=== PATIENT | male | born 1980 | race Caucasian/White ===

== ENCOUNTER 2018-03-10 17:22 | Inpatient (IN) | payer SELFPAY ==
[2018-03-10] VITALS (9 sets, daily range): BP systolic 101–161; BP diastolic 72–90; PULSE 106–125; RESP 15–24; TEMP 36.4–37.2; O2SAT 98–100; BMI 31.1; BMI 30.2
[2018-03-10] MEDS: 0.9% Normal Saline 1,000 ML 1000 ML IV (17:46)
[2018-03-10] MEDS: proMETHazine 25 MG/ML Syringe 12.5 MG IV (17:46)
[2018-03-10 17:53] LABS: Absolute Lymphocyte Count 0.54 X10^3/ul (0.83-4.51); Absolute Neutrophil Count 9.7 X10^3/uL (2.0-7.7); Basophil# 0.01 X10^3/uL; Basophil% 0.1 % (0-1); Eosinophil# 0.01 X10^3/uL; Eosinophils% 0.1 % (0-5); Hematocrit 47.2 % (40-54); Hemoglobin 15.4 g/dl (13.0-16.5); Lymphocyte # 0.54 X10^3/ul (4.0); Lymphocyte % 5.1 % (19-41); Mean Corp Hgb Conc 32.6 g/gl (32-36); Mean Corpuscular Volume 95.2 fL (80-94); Mean Platelet Vol. 10.9 fl (6.2-12.0); Monocyte# 0.33 X10^3/uL; Monocyte% 3.1 % (0-10); Neutrophil # 9.65 X10^3/uL (2.7-7.7); Neutrophil % 91.5 % (47-70); Platelet Count 250 K/mm3 (150-450); RBC Distribution Width CV 12.5 % (11.6-14.6); RBC Distribution Width SD 42.7 fl (35.1-43.9); Red Blood Count 4.96 M/mm3 (4.6-6.2); White Blood Count 10.6 K/mm3 (4.4-11.0)
[2018-03-10 17:54] LABS: Differential Indicated SCAN CRITERIA MET; POSITIVE COUNT NO; POSITIVE DIFFERENTIAL YES; POSITIVE MORPHOLOGY NO
[2018-03-10 18:05] LABS: Bacteria 0 SEEN /hpf (None Seen); Mucous, Urine 0 SEEN /hpf (<or=2+); Red Blood Cells-Urine 0 SEEN /hpf (0-5); Squamous Epithelial Cells - UA 0 SEEN /hpf (0-5); White Blood Cells 0 SEEN /hpf (0-5)
[2018-03-10 18:13] LABS: Differential Comment SCANNED
[2018-03-10 18:14] LABS: Anion Gap 26 (5-15); BUN 31 mg/dL (7-18); Calcium,Total 8.9 mg/dL (8.5-10.1); Chloride 94 mmol/L (98-107); Creatinine, Serum 1.94 mg/dL (0.70-1.30); EST Glomerular Filtration Rate 41 mL/min (>60); Est Glom Filt Rate - Afr Amer 50 mL/min (>60); Estimated Creatinine Clearance 49.46 ml/min; Glucose 488 mg/dL (74-106); Sodium Level 126 mmol/L (136-145)
[2018-03-10 18:15] LABS: Color, Urine Yellow (Yellow); Glucose, Dipstick 1000 mg/dl (Normal); Leukocyte Esterase-Dipstick Negative /ul (Negative); Nitrite-Dipstick Negative (Negative); Occult Blood-Urine 50 /ul (Negative); Protein-Dipstick 30 mg/dl (Negative); Urine Bilirubin Dipstick Negative (Negative); Urine Clarity Clear (Clear); Urine Urobilinogen Normal (Normal)
[2018-03-10 18:24] LABS: Lactic Acid 2.9 mmol/L (0.4-2.0)
[2018-03-10 18:33] LABS: Ketone-Dipstick 150 mg/dl (Negative)
--- NOTE | 2018-03-10 18:52 | ED.VISSUMM ---
- ER Visit Summary Date of Service: 03/10/18 Chief Complaint: [Nausea/vomiting] History of Present Illness: The patient is a 37 M [presents the emergency department complaint of vomiting for 3 days. Patient states that he was started on Bactrim and Invokana 3 days ago and he is not sure if he is having a reaction to the medication. Patient states that he went in for regular checkup at the [facility] and it was thought that he may have a perforated right eardrum started him on Bactrim. Patient also was started on Invokana at that time. Patient planes of a slight headache. Patient was also mild photophobia. Patient states he can keep anything down. Patient is a diabetic and he tells me he is type II. Patient denies recent illness otherwise. Patient has not had any diarrhea. He has not had a fever documented however he has felt subjectively hot at times.] Physical Examination: [HEENT-PERRLA, EOMI. Cranial nerves II through XII grossly intact. TMs clear. Mucous membranes dry. No adenopathy. Cardiovascular-regular and tachycardic, no murmurs auscultated Lungs-clear to auscultation, chest wall stable without crepitus or subcu emphysema Abdomen-normoactive bowel sounds, soft, nontender, no rebound or rigidity, no peritoneal signs. Extremities-intact ?4, normal range of motion, normal pulses, atraumatic] Test Results: [CBC with differential obtained showed a white count of 10.6, hemoglobin 15, hematocrit 47, platelets 280. Chemistry showed a sodium of 126, potassium 6.0, chloride 94, CO2 was 6, anion gap was 26, glucose 488, BUN 31, creatinine 1.94. Patient had a 150 ketones in the urine. Lactate was 2.9. Serum acetone was moderate.] Emergency Department Course and Treatment: [Patient was ordered normal saline 1 L bolus followed by second liter bolus. Patient was started on an insulin drip 0.1 U/kg/h.] Treatment Plan: [Admit] Disposition: [Admit] Impression: [Diabetic ketoacidosis Dehydration] This note was generated with [employer] dictation software. It may contain incorrect words, spelling, and punctuation that were not noted in review of the chart prior to signing ED Disposition - Plan for ED Patient: Chief Complaint: Nausea/Vomiting Referrals: [facility],Betsey Dunlap [Primary Care Provider] -
--- NOTE | 2018-03-10 18:55 | ED.DCSUM_ITS ---
- ER Visit Summary Date of Service: 03/10/18 Chief Complaint: [Nausea/vomiting] History of Present Illness: The patient is a 37 M [presents the emergency department complaint of vomiting for 3 days. Patient states that he was started on Bactrim and Invokana 3 days ago and he is not sure if he is having a reaction to the medication. Patient states that he went in for regular checkup at the [facility] and it was thought that he may have a perforated right eardrum started him on Bactrim. Patient also was started on Invokana at that time. Patient planes of a slight headache. Patient was also mild photophobia. Patient states he can keep anything down. Patient is a diabetic and he tells me he is type II. Patient denies recent illness otherwise. Patient has not had any diarrhea. He has not had a fever documented however he has felt subjectively hot at times.] Physical Examination: [HEENT-PERRLA, EOMI. Cranial nerves II through XII grossly intact. TMs clear. Mucous membranes dry. No adenopathy. Cardiovascular-regular and tachycardic, no murmurs auscultated Lungs-clear to auscultation, chest wall stable without crepitus or subcu emphysema Abdomen-normoactive bowel sounds, soft, nontender, no rebound or rigidity, no peritoneal signs. Extremities-intact ?4, normal range of motion, normal pulses, atraumatic] Test Results: [CBC with differential obtained showed a white count of 10.6, hemoglobin 15, hematocrit 47, platelets 280. Chemistry showed a sodium of 126, potassium 6.0, chloride 94, CO2 was 6, anion gap was 26, glucose 488, BUN 31, creatinine 1.94. Patient had a 150 ketones in the urine. Lactate was 2.9. Serum acetone was moderate.] Emergency Department Course and Treatment: [Patient was ordered normal saline 1 L bolus followed by second liter bolus. Patient was started on an insulin drip 0.1 U/kg/h.] Treatment Plan: [Admit] Disposition: [Admit] Impression: [Diabetic ketoacidosis Dehydration] This note was generated with [employer] dictation software. It may contain incorrect words, spelling, and punctuation that were not noted in review of the chart prior to signing ED Disposition - Plan for ED Patient: Chief Complaint: Nausea/Vomiting Referrals: [facility],Betsey Dunlap [Primary Care Provider] -
[2018-03-10] MEDS: 0.9% Normal Saline 1,000 ML 999 ML IV (19:08)
--- NOTE | 2018-03-10 19:16 | PCM.HP.STD ---
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 Ear infection, recent medication additions The patient is a 37 y/o M w/ PMHx: Diabetes mellitus type II, Obesity, Tobacco use recent started per his PCP on addition DM regimen Invokana as well as recent start 4 days prior on bactrim for possible ear infection per patient report with noted sore R ear with onset nausea, emesis, chills and lethargy progressively worsening over the last 2-3 days. He denies any fever. He denies any dyspnea, coughing, congestion, ear drainage, change in bowels or dysuria. He admits to being poorly controlled DM and non-compliant with his diet. In the ED work-up included T 97.8, heart rate 118, BP 120/77, respiratory rate 17, 100% on room air, CBC with WBC 10.6, hemoglobin 15.4, platelet 250 with left shift, BMP with sodium 126, potassium 6, chloride 94, carbon dioxide 6, anion gap 26, BUN/creatinine 31/1.94, glucose 488, lactic acid 2.9, urinalysis significant for dehydration but no acute infection evident. In the ED patient administered normal saline, Phenergan, insulin drip initiated upon evaluation of patient. Past Medical History Past Medical History (Chronic Problems): Chronic Problems Diabetes mellitus, type II (Chronic) Obesity (BMI 30.0-34.9) (Chronic) Tobacco use (Chronic) Allergies No Known Allergies Allergy (Verified 03/10/18 17:24) Home Medications: Ambulatory Orders Medication Instructions Recorded Aspirin [Aspirin, Baby] 81 mg PO DAILY@0800 03/10/18 Canagliflozin [Invokana] 100 mg PO DAILY 03/10/18 Gabapentin [Neurontin] 100 mg PO DAILY 03/10/18 Insulin Glargine,Hum.rec.anlog 20 unit SQ QHS 03/10/18 [Basaglar Kwikpen U-100] Insulin Lispro [Humalog KwikPen] 6 unit SQ TIDCM 03/10/18 Loratadine 10 mg PO DAILY 03/10/18 Sitagliptin Phos/Metformin HCl 1 tablet PO BIDCM 03/10/18 [Janumet 50-1,000 MG Tablet] Sulfamethoxazole/Trimethoprim 2 each PO BID 03/10/18 [Bactrim 400-80 mg Tablet] Surgical History: no surgical history Psychiatric History: No pertinent psych hx Lives: Spouse/ Significant Other, With Family Smoking Status: Current every day smoker - Smokes approximately one half pack per day. Interested in tobacco cessation. Tobacco Use: Cigarettes Alcohol: None Drugs: Marijuana - Notes rare cannabis usage. - *Family History Maternal History Items: - - Notes a maternal and paternal family history of heart disease and diabetes. Paternal History Items: - - Notes a maternal and paternal family history of heart disease and diabetes. Review of Systems Constitutional: Reports: Anorexia, Chills, Malaise, Weakness, Fatigue. Denies: Fever, Weight Change HEENT: Reports: Ear Pain, Head Aches, - - R ear discomfort.. Denies: Sinus Congestion, Sinus Drainage Cardiovascular: Denies: Chest Pain, Palpitations Respiratory: Denies: Cough, Shortness of breath at rest, Sputum production Gastrointestinal: Reports: Nausea, Vomiting. Denies: Abdominal Pain Genitourinary: Denies: Dysuria Musculoskeletal: Denies: Joint Pain, Joint Tenderness Skin: Denies: Rash, Wounds Neurological: Denies: Numbness, Tingling, Focal weakness Psychiatric: Denies: Anxiety, Depression, Homicidal Ideations, Suicidal Ideations Hematologic/ Lymphatic: Denies: Easy Bruising, Easy Bleeding VTE Information - Inpt Only VTE Present on Admission: No VTE Mechan Device Prophylaxis: SCD's VTE Pharm Prophylaxis ordered?: Yes Patient Problems: Active and Suspected Problems DKA (diabetic ketoacidoses) (Acute) Subjective: Patient laying in the ED bed, ill-appearing, obviously uncomfortable. Objective: Physical Examination: General: awake, alert, oriented x 3 and cooperative, laying in the ED bed, ill appearing, fatigued. Skin: normal color, turgor, no icterus, cyanosis. HEENT: AT/NC, EOMI, PERRLA, dry MM, no carotid bruits or JVD noted, BL TM intact, R canal irritated, suspect from aggressive q-tip usage, no obvious otitis media, no cervical LAD noted, OP not marked appearing without erythema, exudate. Lungs: Diminished BS bases, mild effort, no rales, ronchi or wheezing. Heart: Tachycardic with regular rhythm; no gallop, rub audible. Abdomen: soft, obese, NTTP, ND, normal BS, no HSM. Extremities: no cyanosis, clubbing, or edema. Neurological: patient awake, alert, oriented x 3; cognitive function intact; pupils equally reactive to light and accomodation; cranial nerves II-XII grossly normal, moving all 4 extremities, no focal deficits, strength severely globally decreased secondary to acute presentation. Psychiatric: affect appears fatigued, lethargic, no acute evidence of depressive or anxiety feelings. - Physical Exam Vital Signs Temp Pulse Resp BP Pulse Ox 97.8 F 118 H 17 128/77 H 100 03/10/18 17:24 03/10/18 17:24 03/10/18 17:24 03/10/18 17:24 03/10/18 17:24 Oxygen Delivery Method Room Air Weight: 205 lb Body Mass Index (BMI) 31.1 Laboratory Tests Past 24 Hrs 03/10/18 03/10/18 03/10/18 17:40 17:40 17:40 WBC 10.6 RBC 4.96 Hgb 15.4 Hct 47.2 MCV 95.2 H MCH 31.0 MCHC 32.6 RDW 12.5 RDW Differential 42.7 Plt Count 250 MPV 10.9 Immature Gran % (Auto) 0.100 Neut % (Auto) 91.5 H Lymph % (Auto) 5.1 L [place] % (Auto) 3.1 Eos % (Auto) 0.1 Baso % (Auto) 0.1 Absolute Neuts (auto) 9.7 H Absolute Lymphs (auto) 0.54 L Total Counted Not Reportable Differential Comment SCANNED Sodium 126 L Potassium 6.0 H* Chloride 94 L Carbon Dioxide 6.0 L* Anion Gap 26 H BUN 31 H Creatinine 1.94 H Estim Creat Clear Calc 49.46 Est GFR (MDRD) Af Amer 50 L Est GFR (MDRD) Non-Af 41 L BUN/Creatinine Ratio 16.0 Glucose 488 H* Lactic Acid 2.9 H Calcium 8.9 Urine Color Urine Clarity Urine pH Ur Specific [place] Urine Protein Urine Glucose (UA) Urine Ketones Urine Occult Blood Urine Nitrite Urine Bilirubin Urine Urobilinogen Ur Leukocyte Esterase Urine RBC Urine WBC Ur Squamous Epith Cells Urine Bacteria Urine Mucus Acetone Level 03/10/18 03/10/18 17:40 18:00 WBC RBC Hgb Hct MCV MCH MCHC RDW RDW Differential Plt Count MPV Immature Gran % (Auto) Neut % (Auto) Lymph % (Auto) [place] % (Auto) Eos % (Auto) Baso % (Auto) Absolute Neuts (auto) Absolute Lymphs (auto) Total Counted Differential Comment Sodium Potassium Chloride Carbon Dioxide Anion Gap BUN Creatinine Estim Creat Clear Calc Est GFR (MDRD) Af Amer Est GFR (MDRD) Non-Af BUN/Creatinine Ratio Glucose Lactic Acid Calcium Urine Color Yellow Urine Clarity Clear Urine pH 5.0 Ur Specific [place] 1.020 Urine Protein 30 H Urine Glucose (UA) 1000 H Urine Ketones 150 H Urine Occult Blood 50 H Urine Nitrite Negative Urine Bilirubin Negative Urine Urobilinogen Normal Ur Leukocyte Esterase Negative Urine RBC 0 SEEN Urine WBC 0 SEEN Ur Squamous Epith Cells 0 SEEN Urine Bacteria 0 SEEN Urine Mucus 0 SEEN Acetone Level MODERATE H Assessment/Plan All Active Problems DKA (diabetic ketoacidoses) (Acute) The patient is a 37 y/o M w/ PMHx: Diabetes mellitus type II, Obesity, Tobacco use recent started per his PCP on addition DM regimen Invokana as well as recent start 4 days prior on bactrim for possible ear infection per patient report with noted sore R ear with onset nausea, emesis, chills and lethargy progressively worsening over the last 2-3 days. (1) DKA w/ Diabetes mellitus type II w/ Metabolic Acidosis: Admission CBC with WBC 10.6, hemoglobin 15.4, platelet 250 with left shift, BMP with sodium 126, potassium 6, chloride 94, carbon dioxide 6, anion gap 26, BUN/creatinine 31/1.94, glucose 488, lactic acid 2.9, urinalysis significant for dehydration but no acute infection evident. Patient started on an insulin drip in the ED. Will given additional 10 u IV x 1 now. Will admit to ICU, continue on insulin drip, check serial K+, glucose w/ IVF changes pending these levels, serial chemistry, obtain mag, phos daily w/ repletion as needed, transition to home SC regimen when gap closed w/ overlap on drip, nutrition consultation. Encouraged diet and insulin regimen compliance. Will obtain CXR. Repeat LA, elevated upon presentation secondary to DKA. (2) Acute kidney injury: Secondary to #1. Admission BUN/Cr 31/1.94, prior baseline creatinine noted to be normal. Will hydrate, hold nephrotoxic medications and repeat chemistry as noted. If no improvement would plan FeNa and renal US assessment. (3) ? Recent R Otitis Media: Examination with irritated canals, suspected likely from usage aggressively with q-tips, patient noted TM was ruptured but both intact and well appearing. Will defer further bactrim which was the agent he was placed on. (4) Tobacco Abuse: Encouraged cessation, inpatient consultation per RT, NR if desired. (5) Obesity: Weight loss and lifestyle changes encouraged. (6) DVT prophylaxis: SCD, heparin. Code Visit Inpatient E&M: 59721 Init Hosp L3
--- NOTE | 2018-03-10 19:21 | HP.PCM_ITS ---
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 Ear infection, recent medication additions The patient is a 37 y/o M w/ PMHx: Diabetes mellitus type II, Obesity, Tobacco use recent started per his PCP on addition DM regimen Invokana as well as recent start 4 days prior on bactrim for possible ear infection per patient report with noted sore R ear with onset nausea, emesis, chills and lethargy progressively worsening over the last 2-3 days. He denies any fever. He denies any dyspnea, coughing, congestion, ear drainage, change in bowels or dysuria. He admits to being poorly controlled DM and non-compliant with his diet. In the ED work-up included T 97.8, heart rate 118, BP 120/77, respiratory rate 17, 100 % on room air, CBC with WBC 10.6, hemoglobin 15.4, platelet 250 with left shift , BMP with sodium 126, potassium 6, chloride 94, carbon dioxide 6, anion gap 26 , BUN/creatinine 31/1.94, glucose 488, lactic acid 2.9, urinalysis significant for dehydration but no acute infection evident. In the ED patient administered normal saline, Phenergan, insulin drip initiated upon evaluation of patient. Past Medical History Past Medical History (Chronic Problems): Chronic Problems Diabetes mellitus, type II (Chronic) Obesity (BMI 30.0-34.9) (Chronic) Tobacco use (Chronic) Allergies No Known Allergies Allergy (Verified 03/10/18 17:24) Home Medications: Ambulatory Orders Medication Instructions Recorded Aspirin [Aspirin, Baby] 81 mg PO DAILY@0800 03/10/18 Canagliflozin [Invokana] 100 mg PO DAILY 03/10/18 Gabapentin [Neurontin] 100 mg PO DAILY 03/10/18 Insulin Glargine,Hum.rec.anlog 20 unit SQ QHS 03/10/18 [Basaglar Kwikpen U-100] Insulin Lispro [Humalog KwikPen] 6 unit SQ TIDCM 03/10/18 Loratadine 10 mg PO DAILY 03/10/18 Sitagliptin Phos/Metformin HCl 1 tablet PO BIDCM 03/10/18 [Janumet 50-1,000 MG Tablet] Sulfamethoxazole/Trimethoprim 2 each PO BID 03/10/18 [Bactrim 400-80 mg Tablet] Surgical History: no surgical history Psychiatric History: No pertinent psych hx Lives: Spouse/ Significant Other, With Family Smoking Status: Current every day smoker - Smokes approximately one half pack per day. Interested in tobacco cessation. Tobacco Use: Cigarettes Alcohol: None Drugs: Marijuana - Notes rare cannabis usage. - *Family History Maternal History Items: - - Notes a maternal and paternal family history of heart disease and diabetes. Paternal History Items: - - Notes a maternal and paternal family history of heart disease and diabetes. Review of Systems Constitutional: Reports: Anorexia, Chills, Malaise, Weakness, Fatigue. Denies: Fever, Weight Change HEENT: Reports: Ear Pain, Head Aches, - - R ear discomfort.. Denies: Sinus Congestion, Sinus Drainage Cardiovascular: Denies: Chest Pain, Palpitations Respiratory: Denies: Cough, Shortness of breath at rest, Sputum production Gastrointestinal: Reports: Nausea, Vomiting. Denies: Abdominal Pain Genitourinary: Denies: Dysuria Musculoskeletal: Denies: Joint Pain, Joint Tenderness Skin: Denies: Rash, Wounds Neurological: Denies: Numbness, Tingling, Focal weakness Psychiatric: Denies: Anxiety, Depression, Homicidal Ideations, Suicidal Ideations Hematologic/ Lymphatic: Denies: Easy Bruising, Easy Bleeding VTE Information - Inpt Only VTE Present on Admission: No VTE Mechan Device Prophylaxis: SCD's VTE Pharm Prophylaxis ordered?: Yes Patient Problems: Active and Suspected Problems DKA (diabetic ketoacidoses) (Acute) Subjective: Patient laying in the ED bed, ill-appearing, obviously uncomfortable. Objective: Physical Examination: General: awake, alert, oriented x 3 and cooperative, laying in the ED bed, ill appearing, fatigued. Skin: normal color, turgor, no icterus, cyanosis. HEENT: AT/NC, EOMI, PERRLA, dry MM, no carotid bruits or JVD noted, BL TM intact , R canal irritated, suspect from aggressive q-tip usage, no obvious otitis media, no cervical LAD noted, OP not marked appearing without erythema, exudate. Lungs: Diminished BS bases, mild effort, no rales, ronchi or wheezing. Heart: Tachycardic with regular rhythm; no gallop, rub audible. Abdomen: soft, obese, NTTP, ND, normal BS, no HSM. Extremities: no cyanosis, clubbing, or edema. Neurological: patient awake, alert, oriented x 3; cognitive function intact; pupils equally reactive to light and accomodation; cranial nerves II-XII grossly normal, moving all 4 extremities, no focal deficits, strength severely globally decreased secondary to acute presentation. Psychiatric: affect appears fatigued, lethargic, no acute evidence of depressive or anxiety feelings. - Physical Exam Vital Signs Temp Pulse Resp BP Pulse Ox 97.8 F 118 H 17 128/77 H 100 03/10/18 17:24 03/10/18 17:24 03/10/18 17:24 03/10/18 17:24 03/10/18 17:24 Oxygen Delivery Method Room Air Weight: 205 lb Body Mass Index (BMI) 31.1 Laboratory Tests Past 24 Hrs 03/10/18 03/10/18 03/10/18 17:40 17:40 17:40 WBC 10.6 RBC 4.96 Hgb 15.4 Hct 47.2 MCV 95.2 H MCH 31.0 MCHC 32.6 RDW 12.5 RDW Differential 42.7 Plt Count 250 MPV 10.9 Immature Gran % (Auto) 0.100 Neut % (Auto) 91.5 H Lymph % (Auto) 5.1 L [place] % (Auto) 3.1 Eos % (Auto) 0.1 Baso % (Auto) 0.1 Absolute Neuts (auto) 9.7 H Absolute Lymphs (auto) 0.54 L Total Counted Not Reportable Differential Comment SCANNED Sodium 126 L Potassium 6.0 H* Chloride 94 L Carbon Dioxide 6.0 L* Anion Gap 26 H BUN 31 H Creatinine 1.94 H Estim Creat Clear Calc 49.46 Est GFR (MDRD) Af Amer 50 L Est GFR (MDRD) Non-Af 41 L BUN/Creatinine Ratio 16.0 Glucose 488 H* Lactic Acid 2.9 H Calcium 8.9 Urine Color Urine Clarity Urine pH Ur Specific [place] Urine Protein Urine Glucose (UA) Urine Ketones Urine Occult Blood Urine Nitrite Urine Bilirubin Urine Urobilinogen Ur Leukocyte Esterase Urine RBC Urine WBC Ur Squamous Epith Cells Urine Bacteria Urine Mucus Acetone Level 03/10/18 03/10/18 17:40 18:00 WBC RBC Hgb Hct MCV MCH MCHC RDW RDW Differential Plt Count MPV Immature Gran % (Auto) Neut % (Auto) Lymph % (Auto) [place] % (Auto) Eos % (Auto) Baso % (Auto) Absolute Neuts (auto) Absolute Lymphs (auto) Total Counted Differential Comment Sodium Potassium Chloride Carbon Dioxide Anion Gap BUN Creatinine Estim Creat Clear Calc Est GFR (MDRD) Af Amer Est GFR (MDRD) Non-Af BUN/Creatinine Ratio Glucose Lactic Acid Calcium Urine Color Yellow Urine Clarity Clear Urine pH 5.0 Ur Specific [place] 1.020 Urine Protein 30 H Urine Glucose (UA) 1000 H Urine Ketones 150 H Urine Occult Blood 50 H Urine Nitrite Negative Urine Bilirubin Negative Urine Urobilinogen Normal Ur Leukocyte Esterase Negative Urine RBC 0 SEEN Urine WBC 0 SEEN Ur Squamous Epith Cells 0 SEEN Urine Bacteria 0 SEEN Urine Mucus 0 SEEN Acetone Level MODERATE H Assessment/Plan All Active Problems DKA (diabetic ketoacidoses) (Acute) The patient is a 37 y/o M w/ PMHx: Diabetes mellitus type II, Obesity, Tobacco use recent started per his PCP on addition DM regimen Invokana as well as recent start 4 days prior on bactrim for possible ear infection per patient report with noted sore R ear with onset nausea, emesis, chills and lethargy progressively worsening over the last 2-3 days. (1) DKA w/ Diabetes mellitus type II w/ Metabolic Acidosis: Admission CBC with WBC 10.6, hemoglobin 15.4, platelet 250 with left shift, BMP with sodium 126, potassium 6, chloride 94, carbon dioxide 6, anion gap 26, BUN/creatinine 31/1.94 , glucose 488, lactic acid 2.9, urinalysis significant for dehydration but no acute infection evident. Patient started on an insulin drip in the ED. Will given additional 10 u IV x 1 now. Will admit to ICU, continue on insulin drip, check serial K+, glucose w/ IVF changes pending these levels, serial chemistry, obtain mag, phos daily w/ repletion as needed, transition to home SC regimen when gap closed w/ overlap on drip, nutrition consultation. Encouraged diet and insulin regimen compliance. Will obtain CXR. Repeat LA, elevated upon presentation secondary to DKA. (2) Acute kidney injury: Secondary to #1. Admission BUN/Cr 31/1.94, prior baseline creatinine noted to be normal. Will hydrate, hold nephrotoxic medications and repeat chemistry as noted. If no improvement would plan FeNa and renal US assessment. (3) ? Recent R Otitis Media: Examination with irritated canals, suspected likely from usage aggressively with q-tips, patient noted TM was ruptured but both intact and well appearing. Will defer further bactrim which was the agent he was placed on. (4) Tobacco Abuse: Encouraged cessation, inpatient consultation per RT, NR if desired. (5) Obesity: Weight loss and lifestyle changes encouraged. (6) DVT prophylaxis: SCD, heparin. Code Visit Inpatient E&M: 97764 Init Hosp L3
[2018-03-10 19:56] LABS: Bedside Glucose 430 mg/dL (70-110)
[2018-03-10 20:50] LABS: Bedside Glucose 384 mg/dL (70-110)
[2018-03-10 21:46] LABS: Reflex Lactate? Y
[2018-03-10 22:12] LABS: Absolute Lymphocyte Count 0.71 X10^3/ul (0.83-4.51); Absolute Neutrophil Count 9.8 X10^3/uL (2.0-7.7); Basophil# 0.01 X10^3/uL; Basophil% 0.1 % (0-1); Hematocrit 41.7 % (40-54); Hemoglobin 13.9 g/dl (13.0-16.5); Lymphocyte # 0.71 X10^3/ul (4.0); Lymphocyte % 6.4 % (19-41); Mean Corp Hgb Conc 33.3 g/gl (32-36); Mean Corpuscular Hgb 31.3 pg (27.0-32.0); Mean Corpuscular Volume 93.9 fL (80-94); Mean Platelet Vol. 9.7 fl (6.2-12.0); Monocyte# 0.63 X10^3/uL; Monocyte% 5.6 % (0-10); Neutrophil # 9.82 X10^3/uL (2.7-7.7); Neutrophil % 87.8 % (47-70); Platelet Count 208 K/mm3 (150-450); RBC Distribution Width CV 12.5 % (11.6-14.6); RBC Distribution Width SD 42.4 fl (35.1-43.9); Red Blood Count 4.44 M/mm3 (4.6-6.2); White Blood Count 11.2 K/mm3 (4.4-11.0)
[2018-03-10 22:13] LABS: POSITIVE COUNT NO; POSITIVE DIFFERENTIAL NO; POSITIVE MORPHOLOGY NO
[2018-03-10 22:28] LABS: Anion Gap 26 (5-15); BUN 31 mg/dL (7-18); BUN/Creat Ratio 16.8 RATIO (10-20); Calcium,Total 8.2 mg/dL (8.5-10.1); Chloride 103 mmol/L (98-107); Creatinine, Serum 1.84 mg/dL (0.70-1.30); EST Glomerular Filtration Rate 44 mL/min (>60); Est Glom Filt Rate - Afr Amer 53 mL/min (>60); Estimated Creatinine Clearance 52.15 ml/min; Glucose 269 mg/dL (74-106); Potassium 4.9 mmol/L (3.5-5.1); Sodium Level 136 mmol/L (136-145)
[2018-03-10] MEDS: 0.9% Normal Saline 1,000 ML 500 ML IV (22:32)
[2018-03-10] MEDS: Heparin Injection (Vial) 5,000 UNIT/ML VIAL 5000 UNIT SC (22:33)
[2018-03-10 22:34] LABS: Magnesium 2.6 mg/dL (1.6-2.6); Phosphorus 6.2 mg/dL (2.5-4.9)
[2018-03-10 22:36] LABS: Lactic Acid 1.2 mmol/L (0.4-2.0)
[2018-03-10 22:40] LABS: Blood Gas Specimen Type VEN; O2 Delivery Device Room Air; SITE OTHER; Time Given 2225; VBG BASE EXCESS -23 mmol/L (-1.0-3.5); VBG Bicarbonate 7 mmol/L (22-26); VBG Oxygen Content 7 mmol/L (23-33); VBG PO2 35 mmHg (25-40); VBG SO2 52 % (50-70); VBG pCO2 19.8 mmHg (41-51); VBG pH 7.13 (7.32-7.42)
[2018-03-10 22:57] LABS: M R Staph aureus DNA By PCR Negative (Negative); Probe Check PASS; Specimen Processing Control PASS
[2018-03-10] MEDS: Zolpidem Tartrate 5 MG Tablet PO (22:59)
[2018-03-10] MEDS: Magnesium Hydroxide 30 ML UDC PO (22:59)
[2018-03-10 23:31] LABS: Bedside Glucose 317 mg/dL (70-110)
[2018-03-10 23:31] LABS: Bedside Glucose 231 mg/dL (70-110)
[2018-03-10 23:41] LABS: Bedside Glucose 155 mg/dL (70-110)
[2018-03-11] VITALS (18 sets, daily range): BP systolic 91–129; BP diastolic 44–89; PULSE 98–119; RESP 14–22; TEMP 36.4–37.3; O2SAT 95–99
[2018-03-11 00:46] LABS: Bedside Glucose 139 mg/dL (70-110)
[2018-03-11 01:14] LABS: Anion Gap 18 (5-15); BUN 26 mg/dL (7-18); BUN/Creat Ratio 16.4 RATIO (10-20); Calcium,Total 7.7 mg/dL (8.5-10.1); Chloride 106 mmol/L (98-107); Creatinine, Serum 1.59 mg/dL (0.70-1.30); EST Glomerular Filtration Rate 52 mL/min (>60); Est Glom Filt Rate - Afr Amer 63 mL/min (>60); Estimated Creatinine Clearance 60.35 ml/min; Glucose 145 mg/dL (74-106); Potassium 4.8 mmol/L (3.5-5.1); Sodium Level 134 mmol/L (136-145)
[2018-03-11 01:46] LABS: Bedside Glucose 143 mg/dL (70-110)
[2018-03-11 02:36] LABS: Bedside Glucose 135 mg/dL (70-110)
[2018-03-11 03:30] LABS: Bedside Glucose 125 mg/dL (70-110)
[2018-03-11 04:51] LABS: Bedside Glucose 114 mg/dL (70-110)
[2018-03-11 05:28] LABS: Anion Gap 13 (5-15); BUN 24 mg/dL (7-18); BUN/Creat Ratio 15.4 RATIO (10-20); Calcium,Total 7.4 mg/dL (8.5-10.1); Chloride 108 mmol/L (98-107); Creatinine, Serum 1.56 mg/dL (0.70-1.30); EST Glomerular Filtration Rate 53 mL/min (>60); Est Glom Filt Rate - Afr Amer 64 mL/min (>60); Estimated Creatinine Clearance 61.51 ml/min; Glucose 126 mg/dL (74-106); Potassium 4.8 mmol/L (3.5-5.1); Sodium Level 138 mmol/L (136-145)
[2018-03-11 05:41] LABS: Bedside Glucose 118 mg/dL (70-110)
[2018-03-11] MEDS: 0.9% NaCl Peripheral Flush Adult/Peds IV (05:42)
--- NOTE | 2018-03-11 06:43 | CON.PCM_ITS ---
Problem List (1) DKA (diabetic ketoacidoses) Status: Acute Qualifiers: Diabetes mellitus type: type 2 Diabetes mellitus complication detail: without coma Qualified Code(s): E11.10 - Type 2 diabetes mellitus with ketoacidosis without coma (2) Diabetes mellitus, type II Status: Chronic Qualifiers: Diabetes mellitus terminal superintendent insulin use: without detention use Diabetes mellitus complication status: with unspecified complications Qualified Code(s) : E11.8 - Type 2 diabetes mellitus with unspecified complications (3) Obesity (BMI 30.0-34.9) Status: Chronic (4) Tobacco use Status: Chronic Reason for Consult Date of Consultation: 03/11/18 Reason for Consultation: DKA History of Present Illness: The patient is a 37 year old M, with past medical history listed below, who presented to [facility] on 03/10/2018 secondary to nausea, vomiting, chills and lethargy. Patient had reported right ear pain over the last 7-10 days, but 2-3 days prior to presentation patient started to have nausea, chills and subjective fever. Patient denies any associated dyspnea, coughing, congestion or acute ear drainage. Patient states he was placed on antibiotics after presentation to the urgent care and then developed nausea. On presentation to the emergency department, patient was noted to be tachycardic at 118 bpm, but saturating well on room air. Patient's labs were consistent with DKA with a blood glucose of 488, lactate of 2.9 and a bicarb of 6. Patient was given normal saline, Phenergan and insulin drip. While in the intensive care unit, patient has had good response to insulin drip. Patient states nausea is improving. Patient feels his ear pain is also improving. Patient states that he feels like he is getting close to his baseline, but is not interested in food at this time. Patient reports an extended history of diabetes mellitus. Patient was recently changed to Invokana and is unclear if this is leading to current side effects. Patient denies any history of DKA in the past. Patient does report compliance with diabetic diet and testing. Patient denies any recent failure to obtain insulin. Patient denies any rash associated with the initiation of Bactrim. Past Medical History Past Medical History (Chronic Problems): Chronic Problems Diabetes mellitus, type II (Chronic) Obesity (BMI 30.0-34.9) (Chronic) Tobacco use (Chronic) Allergies No Known Allergies Allergy (Verified 03/10/18 17:24) Home Medications: Ambulatory Orders Medication Instructions Recorded Aspirin [Aspirin, Baby] 81 mg PO DAILY@0800 03/10/18 Canagliflozin [Invokana] 100 mg PO DAILY 03/10/18 Gabapentin [Neurontin] 100 mg PO DAILY 03/10/18 Insulin Glargine,Hum.rec.anlog 40 unit SQ QHS 03/10/18 [Basaglar Kwikpen U-100] Insulin Lispro [Humalog KwikPen] 6 unit SQ TIDCM 03/10/18 Sulfamethoxazole/Trimethoprim 2 each PO BID 03/10/18 [Bactrim 400-80 mg Tablet] Surgical History: no surgical history Psychiatric History: No pertinent psych hx Lives: Spouse/ Significant Other, With Family Smoking Status: Current every day smoker Tobacco Use: Cigarettes Alcohol: None Drugs: Marijuana - Notes rare cannabis usage. - *Family History Maternal History Items: - - Notes a maternal and paternal family history of heart disease and diabetes. Paternal History Items: - - Notes a maternal and paternal family history of heart disease and diabetes. Review of Systems Comment: See HPI, otherwise negative ?10 systems. Patient Problems: Active and Suspected Problems DKA (diabetic ketoacidoses) (Acute) - Physical Exam General: Alert, Oriented x3, Cooperative, No apparent distress, - - Appears stated age. Speaking in full sentences. HEENT: Atraumatic, PERRLA, EOMI, Normocephalic, - - No scleral icterus or injection noted. Oral: Moist Mucosa, No Gingival or Mucosal Lesions/ Ulcerations Neck: Supple, No JVD, No Nodes, Trachea Midline Lungs: Clear to auscultation, Normal air movement, No rhonchi, No wheeze, No rales, - - Symmetric expansion. No dullness to percussion. Cardiovascular: Regular rate, Regular Rhythm, Normal S1, Normal S2, No murmurs, No rub noted, No Gallop Abdomen: Bowel Sounds Present, Soft, Non Tender, Non-Distended Extremities: No clubbing, No cyanosis, No edema, Capillary Refill Less than 3 Seconds Skin: No rashes, No breakdown, - - Multiple tattoos Musculoskeletal: No Tenderness to Palpation of Joints or Extremities, No Muscle Wasting Lymphatic: No Cervical, Supraclavicular, or Inguinal Adenopathy Neurological: Cranial nerves II-XII grossly intact, Neuro grossly intact, Motor Exam 5/5 strength throughout Psych/Mental Status: Alert and oriented to time, place, person, mood and affect Vital Signs Temp Pulse Resp BP Pulse Ox 37.1 C 107 H 16 103/65 99 03/11/18 04:00 03/11/18 05:24 03/11/18 05:00 03/11/18 05:00 03/11/18 05:00 Oxygen Delivery Method Room Air Weight: 94 kg Body Mass Index (BMI) 30.2 Finger Stick Blood Glucose 118 Intake and Output for Last 24 Hours 03/09/18 03/10/18 03/11/18 23:59 23:59 23:59 Intake Total 1474 / 1474 1234 / 1234 Output Total 258 / 258 Balance 1474 / 1474 976 / 976 Laboratory Tests Past 24 Hrs 03/10/18 03/10/18 03/10/18 21:20 21:59 22:00 WBC 11.2 H RBC 4.44 L Hgb 13.9 Hct 41.7 MCV 93.9 MCH 31.3 MCHC 33.3 RDW 12.5 RDW Differential 42.4 Plt Count 208 MPV 9.7 Immature Gran % (Auto) 0.100 Neut % (Auto) 87.8 H Lymph % (Auto) 6.4 L [place] % (Auto) 5.6 Eos % (Auto) 0.0 Baso % (Auto) 0.1 Absolute Neuts (auto) 9.8 H Absolute Lymphs (auto) 0.71 L Total Counted Not Reportable Specimen Type Sample Site VBG pH VBG pO2 VBG O2 Sat (Calc) VBG O2 Content VBG Base Excess POC Mix VBG pCO2 Pt Tmp O2 Delivery Device Blood Gas Notified Whom Blood Gas Notified Time Sodium 136 Potassium 4.9 Chloride 103 Carbon Dioxide 7.0 L* Anion Gap 26 H BUN 31 H Creatinine 1.84 H Estim Creat Clear Calc 52.15 Est GFR (MDRD) Af Amer 53 L Est GFR (MDRD) Non-Af 44 L BUN/Creatinine Ratio 16.8 Glucose 269 H Hemoglobin A1c Lactic Acid Calcium 8.2 L Phosphorus Magnesium Troponin I < 0.015 MRSA (PCR) Negative 03/10/18 03/10/18 03/10/18 22:00 22:00 22:00 WBC RBC Hgb Hct MCV MCH MCHC RDW RDW Differential Plt Count MPV Immature Gran % (Auto) Neut % (Auto) Lymph % (Auto) [place] % (Auto) Eos % (Auto) Baso % (Auto) Absolute Neuts (auto) Absolute Lymphs (auto) Total Counted Specimen Type Sample Site VBG pH VBG pO2 VBG O2 Sat (Calc) VBG O2 Content VBG Base Excess POC Mix VBG pCO2 Pt Tmp O2 Delivery Device Blood Gas Notified Whom Blood Gas Notified Time Sodium Potassium Chloride Carbon Dioxide Anion Gap BUN Creatinine Estim Creat Clear Calc Est GFR (MDRD) Af Amer Est GFR (MDRD) Non-Af BUN/Creatinine Ratio Glucose Hemoglobin A1c Pending Lactic Acid 1.2 Calcium Phosphorus 6.2 H Magnesium 2.6 Troponin I MRSA (PCR) 03/10/18 03/11/18 03/11/18 22:30 00:40 04:50 WBC RBC Hgb Hct MCV MCH MCHC RDW RDW Differential Plt Count MPV Immature Gran % (Auto) Neut % (Auto) Lymph % (Auto) [place] % (Auto) Eos % (Auto) Baso % (Auto) Absolute Neuts (auto) Absolute Lymphs (auto) Total Counted Specimen Type KARLI Sample Site OTHER VBG pH 7.13 L* VBG pO2 35 VBG O2 Sat (Calc) 52 VBG O2 Content 7 L VBG Base Excess -23 L POC Mix VBG pCO2 Pt Tmp 19.8 L O2 Delivery Device Room Air Blood Gas Notified Whom [facility] Blood Gas Notified Time 2225 Sodium 134 L 138 Potassium 4.8 4.8 Chloride 106 108 H Carbon Dioxide 10.0 L 17.0 L Anion Gap 18 H 13 BUN 26 H 24 H Creatinine 1.59 H 1.56 H Estim Creat Clear Calc 60.35 61.51 Est GFR (MDRD) Af Amer 63 64 Est GFR (MDRD) Non-Af 52 L 53 L BUN/Creatinine Ratio 16.4 15.4 Glucose 145 H 126 H Hemoglobin A1c Lactic Acid Calcium 7.7 L 7.4 L Phosphorus Magnesium Troponin I < 0.015 < 0.015 MRSA (PCR) POC Glucose 03/11/18 03/11/18 03/11/18 05:37 04:45 03:24 POC Glucose 118 H 114 H 125 H 03/11/18 03/11/18 03/11/18 02:32 01:38 00:41 POC Glucose 135 H 143 H 139 H 03/10/18 03/10/18 03/10/18 23:35 22:26 21:21 POC Glucose 155 H 231 H 317 H 03/10/18 03/10/18 20:42 19:50 POC Glucose 384 H 430 H Assessment/Plan Active and Suspected Problems DKA (diabetic ketoacidoses) (Acute) RECOMMENDATIONS: 1. Continue insulin drip per DKA protocol 2. Transition to p.o. diet later today 3. Administer ceftriaxone for ear infection 4. Transition off of insulin drip per protocol IMPRESSIONS: 1. Nausea secondary to acute DKA Patient has reported right ear pain for 1-2 weeks. However, in the last 48-72 hours, patient has developed nausea. It is unclear if this is secondary to antibiotic therapy versus the development of DKA. Would favor infectious stimulus to developing DKA. Patient is currently on insulin drip at protocol settings. Patient appears to be responding well. Likely transition to subcutaneous insulin if next labs show gap is closed. Nausea has resolved with improvement in overall DKA. 2. Probable right ear infection Unclear patient has a partially treated otitis media. Patient will be given a single dose of ceftriaxone as this will have better coverage for ear organisms. Patient does not have significant leukocytosis after repeat hydration. Patient may follow-up with ENT as an outpatient if not improving. 3. Acute versus chronic kidney disease Patient came in with significant elevation of creatinine. This appears to be improving with hydration. However, this is not back to normal. Patient does not have previous laboratory data here at [facility], so it is unclear if this represents his normal baseline. There is no indication for renal replacement therapy at this time. Will need to attempt to obtain lab work from other institution to see if this is his baseline. Code Visit Inpatient E&M: 95028 Init Hosp L3
[2018-03-11 06:45] LABS: Bedside Glucose 117 mg/dL (70-110)
[2018-03-11] MEDS: Gabapentin 100 MG Capsule PO (09:19)
[2018-03-11] MEDS: Aspirin 81 MG TAB.CHEW PO (09:19)
[2018-03-11] MEDS: Ceftriaxone 1 GM/50 ML BAG IV (09:20)
[2018-03-11 09:44] LABS: Anion Gap 10 (5-15); BUN 21 mg/dL (7-18); BUN/Creat Ratio 14.5 RATIO (10-20); Calcium,Total 7.5 mg/dL (8.5-10.1); Chloride 107 mmol/L (98-107); Creatinine, Serum 1.45 mg/dL (0.70-1.30); EST Glomerular Filtration Rate 58 mL/min (>60); Est Glom Filt Rate - Afr Amer 70 mL/min (>60); Estimated Creatinine Clearance 66.17 ml/min; Glucose 114 mg/dL (74-106); Potassium 4.2 mmol/L (3.5-5.1); Sodium Level 138 mmol/L (136-145)
--- NOTE | 2018-03-11 10:03 | CASEMGMT ---
See RN CM Assessment Link. DC Plan Home, f/u with [facility]. Pt states he goes to [facility] for diabetic supplies. Has blood glucose monitoring machine and checks his bs 2-4x/day. He plans to return to [facility] on dc for f/u. -States PFS has spoken to him re: his hospital stay and has no questions @ this time. Kaylee MONTENEGRO updated that pt does not have concerns re: SP status @ this time. Nic DIASN RN ACM
[2018-03-11 10:45] LABS: Hemoglobin A1c 12.3 % (4.2-6.3)
[2018-03-11] MEDS: Heparin Injection (Vial) 5,000 UNIT/ML VIAL 5000 UNIT SC (11:20)
[2018-03-11] MEDS: 0.9% Normal Saline 1,000 ML 150 ML IV (11:29)
[2018-03-11] MEDS: Insulin Lispro 100 UNIT/ML INSULN.PEN 10 UNIT SC ×2 (11:29→17:12)
[2018-03-11 11:31] LABS: Bedside Glucose 95 mg/dL (70-110)
[2018-03-11 11:40] LABS: Bedside Glucose 112 mg/dL (70-110)
[2018-03-11] MEDS: Acetaminophen 325 MG Tablet 650 MG PO (12:49)
[2018-03-11 14:56] LABS: Bedside Glucose 276 mg/dL (70-110)
[2018-03-11 17:20] LABS: Bedside Glucose 330 mg/dL (70-110)
--- NOTE | 2018-03-11 18:17 | PCM.DC ---
- Discharge Diagnoses Current Active Problems: Current Active and Chronic Problems DKA (diabetic ketoacidoses) (Acute) Diabetes mellitus, type II (Chronic) Obesity (BMI 30.0-34.9) (Chronic) Tobacco use (Chronic) You will use the following diet at home:: Calorie/Carbohydrate Controlled (specify 1200, 1400, etc) - 1800 gogo Your food should be the consistency of: Regular Your liquids should be the consistency of: Regular/Thin Discharge Activity: Return to Normal Activity Allergies/Adverse Reactions: Allergies No Known Allergies Allergy (Verified 03/10/18 17:24) Medications to take at Discharge Aspirin [Aspirin, Baby] 81 mg PO DAILY@0800 03/10/18 Gabapentin [Neurontin] 100 mg PO DAILY 03/10/18 Insulin Glargine,Hum.rec.anlog [Basaglar Kwikpen U-100] 22 unit SQ BID #1 insuln.pen 03/11/18 Insulin Lispro [Humalog KwikPen] 12 unit SC TIDAC #1 insuln.pen 03/11/18 Sitagliptin Phos/Metformin HCl [Janumet 50-1,000 mg Tablet] 1 each PO BID #1 tablet 03/11/18 The following prescriptions were given: Insulin Lispro [Humalog KwikPen] 12 unit SC TIDAC #1 insuln.pen Insulin Glargine,Hum.rec.anlog [Basaglar Kwikpen U-100] 22 unit SQ BID #1 insuln.pen Sitagliptin Phos/Metformin HCl [Janumet 50-1,000 mg Tablet] 1 each PO BID #1 tablet Primary Care Physician: Betsey Greco [Primary Care Provider] - Please follow up with your Primary Care Physician in: this week Test Results: Test results from this visit will be discussed in further detail at your follow-up appointment, if applicable.
--- NOTE | 2018-03-11 18:20 | DCINST_ITS ---
- Discharge Diagnoses Current Active Problems: Current Active and Chronic Problems DKA (diabetic ketoacidoses) (Acute) Diabetes mellitus, type II (Chronic) Obesity (BMI 30.0-34.9) (Chronic) Tobacco use (Chronic) You will use the following diet at home:: Calorie/Carbohydrate Controlled ( specify 1200, 1400, etc) - 1800 gogo Your food should be the consistency of: Regular Your liquids should be the consistency of: Regular/Thin Discharge Activity: Return to Normal Activity Allergies/Adverse Reactions: Allergies No Known Allergies Allergy (Verified 03/10/18 17:24) Medications to take at Discharge Aspirin [Aspirin, Baby] 81 mg PO DAILY@0800 03/10/18 Gabapentin [Neurontin] 100 mg PO DAILY 03/10/18 Insulin Glargine,Hum.rec.anlog [Basaglar Kwikpen U-100] 22 unit SQ BID #1 insuln.pen 03/11/18 Insulin Lispro [Humalog KwikPen] 12 unit SC TIDAC #1 insuln.pen 03/11/18 Sitagliptin Phos/Metformin HCl [Janumet 50-1,000 mg Tablet] 1 each PO BID #1 tablet 03/11/18 The following prescriptions were given: Insulin Lispro [Humalog KwikPen] 12 unit SC TIDAC #1 insuln.pen Insulin Glargine,Hum.rec.anlog [Basaglar Kwikpen U-100] 22 unit SQ BID #1 insuln.pen Sitagliptin Phos/Metformin HCl [Janumet 50-1,000 mg Tablet] 1 each PO BID #1 tablet Primary Care Physician: Betsey Greco [Primary Care Provider] - Please follow up with your Primary Care Physician in: this week Test Results: Test results from this visit will be discussed in further detail at your follow- up appointment, if applicable.
--- NOTE | 2018-03-13 19:26 | DS.PCM_ITS ---
Discharge Date and Diagnosis Date of Admission: 03/10/18 Date of Discharge: 03/11/18 - Primary Discharge Diagnosis #1 diabetic ketoacidosis #2 type 2 diabetes uncontrolled #3 chronic kidney disease stage III secondary to type 2 diabetes #4 dehydration #5 hyperkalemia - Secondary Discharge Diagnosis Chronic Problems Diabetes mellitus, type II (Chronic) Obesity (BMI 30.0-34.9) (Chronic) Tobacco use (Chronic) Hospital Course and Treatment Operations: None Procedures: None Summary of Care Provided: The patient is a 37 year old M who was seen in the emergency room at [facility] with chief complaint of nausea and vomiting times 3 days, patient has been started on an antibiotic for a presumed ear infection, and he was unsure whether the nausea and vomiting was reaction to the medication. Evaluation in the emergency room showed his anion gap was elevated at 26, potassium was elevated at 6, sodium was 126, bicarb was 6, BUN was 31, creatinine is 1.94, and glucose was 488. Lactate was elevated at 2.9. Serum acetone was moderate. Patient was felt to be in DKA, he was given IV fluids and admitted to the ICU on insulin drip. Patient's blood sugars declined and his anion gap normalized. He was moved out to the third floor, on 03/11/18, patient was seen and examined felt to be in stable condition for discharge home Discharge Activity: Return to Normal Activity Home Medications: Medications to take at Discharge Aspirin [Aspirin, Baby] 81 mg PO DAILY@0800 03/10/18 Gabapentin [Neurontin] 100 mg PO DAILY 03/10/18 Insulin Glargine,Hum.rec.anlog [Basaglar Kwikpen U-100] 22 unit SQ BID #1 insuln.pen 03/11/18 Insulin Lispro [Humalog KwikPen] 12 unit SC TIDAC #1 insuln.pen 03/11/18 Sitagliptin Phos/Metformin HCl [Janumet 50-1,000 mg Tablet] 1 each PO BID #1 tablet 03/11/18 Following Prescrptions Were Given to Patient: Insulin Lispro [Humalog KwikPen] 12 unit SC TIDAC #1 insuln.pen Insulin Glargine,Hum.rec.anlog [Basaglar Kwikpen U-100] 22 unit SQ BID #1 insuln.pen Sitagliptin Phos/Metformin HCl [Janumet 50-1,000 mg Tablet] 1 each PO BID #1 tablet Primary Care Physician: Betsey Greco [Primary Care Provider] - Please follow up with your Primary Care Physician in: this week Disposition: Home Minutes spent on discharge:: 31 Patient Condition:: Stable Medical Necessity - Tobacco Use Smoking Status: Current every day smoker Tobacco Use: Cigarettes Meaningful Use Info Meaningful Use Diagnoses (Choose all that apply): None applicable Code Visit Inpatient E&M: 37060 Disch Hosp
== END 2018-03-11 18:50 | disposition home or self-care (01) | DRG 639 ==
LOC: ED 18:56 → ICU 19:16 → MS3 03-11 12:46
PROVIDERS: Family Medicine; Admitting Provider Internal Medicine; Emergency Provider Emergency Medicine; Visit Provider Internal Medicine
DX: E11.10 Type 2 diabetes mellitus with ketoacidosis without coma (principal); E11.65 Type 2 diabetes mellitus with hyperglycemia; E11.22 Type 2 diabetes mellitus with diabetic chronic kidney disease; N18.3 Chronic kidney disease, stage 3 (moderate); E86.0 Dehydration; E87.5 Hyperkalemia; E66.9 Obesity, unspecified; Z68.31 Body mass index [BMI] 31.0-31.9, adult; Z71.3 Dietary counseling and surveillance; F17.210 Nicotine dependence, cigarettes, uncomplicated; Z91.11 Patient's noncompliance with dietary regimen
CPT/HCPCS: 80048; 81001; 82009; 82803; 82962; 83036; 83605; 83735; 84100; 84484; 85025; 87641; 99283; 99406; J7030; A4216

== ENCOUNTER 2018-07-09 22:42 | Emergency (ER) | payer MEDICAID, SELFPAY ==
[2018-07-09 22:42] VITALS: BP 163/86; PULSE 96; RESP 18; TEMP 36.1; O2SAT 97; BMI 33.3
--- NOTE | 2018-07-09 23:00 | ED.DCSUM_ITS ---
- ER Visit Summary Date of Service: 07/09/18 Chief Complaint: Back pain History of Present Illness: The patient is a 37 M who presents with back pain. He reports a history of scoliosis and prior back pain. He states that it is been worse since this morning. He states that he worked all day. He complains of a electric shooting pain in his lower back with radiation into the bilateral buttocks. No numbness tingling or weakness. No fever or abdominal pain. No urinary retention or fecal incontinence. No history of prior back surgery. No trauma. Physical Examination: Afebrile vitals are stable It when I entered the room the patient was on his knees leaning over a chair whi ch was the most comfortable position for him He does appear uncomfortable Heart regular rate and rhythm Patient has some mild reproducible lower back paraspinal tenderness no midline tenderness Straight leg raise negative bilaterally Normal strength and sensation of the lower extremities Test Results: Not indicated Emergency Department Course and Treatment: Patient drove so he was given intramuscular Toradol here. He was given prescriptions for prednisone burst and a short course of [place] for acute pain control. He was advised to follow-up with his primary care physician. He understands to return for new or worsening symptoms. Patient discharged. Treatment Plan: [] Disposition: Discharge Impression: Low back pain This note was generated with [employer] dictation software. It may contain incorrect words, spelling, and punctuation that were not noted in review of the chart prior to signing ED Disposition - Plan for ED Patient: Chief Complaint: Back Referrals: Elia Restrepo,Betsey Dunlap [Primary Care Provider] -
--- NOTE | 2018-07-09 23:00 | ED.DEP ---
ED Disposition - Plan for ED Patient: Chief Complaint: Back Instructions: ED Sciatica Prescriptions: Hydrocodone Bitart/Apap 5-325 [[place] 5MG-325MG] 1 tab PO Q6H PRN PRN 3 Days #12 tab PRN Reason: Pain Prednisone [Deltasone] 60 mg PO DAILY #15 tab Referrals: Free Lauro,Betsey Dunlap [Primary Care Provider] -
[2018-07-09] MEDS: Ketorolac 60 MG/2 ML Vial IM (23:05)
[2018-07-09 23:32] VITALS: RESP 18
== END 2018-07-09 23:33 | disposition home or self-care (01) ==
LOC: ED 23:15
PROVIDERS: Emergency Provider Emergency Medicine; Referring Provider Nurse Practitioner Family
DX: M54.5 Low back pain (principal); M41.9 Scoliosis, unspecified; E11.9 Type 2 diabetes mellitus without complications; Z79.4 Long term (current) use of insulin; Z72.0 Tobacco use
CPT/HCPCS: 96372; 99282

== ENCOUNTER 2019-06-05 20:29 | Emergency (ER) | payer MEDICAID, SELFPAY ==
[2019-06-05 20:29] VITALS: BP 148/78; PULSE 79; RESP 16; TEMP 36.7; O2SAT 97; BMI 33.3
[2019-06-05] MEDS: Cephalexin 500 MG Capsule PO (22:50)
--- NOTE | 2019-06-05 23:31 | ED.VISSUMM ---
- ER Visit Summary Date of Service: 06/05/19 Chief Complaint: Left thigh abscess History of Present Illness: The patient is a 38 M who presents with an abscess to his left thigh that has been getting worse over the past 4 days. Patient states is on the medial aspect of his proximal thigh. Patient states nothing makes it better or worse. Patient states he has not done anything to try and alleviate the pain. Patient states he attempted to squeeze it without success. Patient denies any fevers or chills. Patient does admit to some nausea but denies any vomiting. Patient does admit to some redness and over the left thigh area. Physical Examination: Vital signs are stable. Patient is afebrile. Patient is in no acute distress. Skin is warm dry. There is a tender indurated area over the medial aspect of the left proximal thigh. There is surrounding erythema and warmth. There is no active discharge or drainage. There is no fluctuance. There is full range of motion of the left lower extremity. Cranial nerves II through XII are intact. There are no focal motor or sensory deficits noted. Emergency Department Course and Treatment: Patient was given a dose of Keflex here in the emergency department. Written informed consent was obtained. Patient understood the risks and benefits of the procedure. Patient is agreeable with the procedure. The area was cleaned and anesthetized 1% plain lidocaine locally. The area was opened with a cruciate incision using a #11 blade scalpel. There is minimal amount of purulent drainage noted. There is moderate bleeding noted. The abscess was irrigated with saline. The wound was left open. Bacitracin dressing was applied. Patient tolerated procedure well. Patient later reported that he does have a history of MRSA. Patient was given a prescription for clindamycin to cover for MRSA as well as strep and other skin godfrey. Patient was instructed to follow-up with his primary care physician in 5 to 7 days. Patient was instructed return if worse in any way. Patient understood and was agreeable with the plan. All questions were answered. Disposition: Discharge home Impression: 1. Left thigh abscess 2. Incision and drainage by emergency physician. This note was generated with [employer] software. It may contain incorrect words, spelling, and punctuation that were not noted in review of the chart prior to signing ED Disposition - Plan for ED Patient: Disposition: Home or Assisted Living Diagnosis: Abscess of left thigh Instructions: ABSCESS, Incision and Drainage Prescriptions: Clindamycin HCl [Cleocin] 300 mg PO Q6H #40 cap Transmission Status: Received by [id number] Referrals: Betsey Greco [Primary Care Provider] - 3-5 Days
[2019-06-05 23:54] VITALS: BP 125/81; TEMP 37.3
[2019-06-05] MEDS: BACITRACIN 15 GM Tube 1 APPLIC TOPICAL (23:56)
== END 2019-06-05 23:58 | disposition home or self-care (01) ==
PROVIDERS: Emergency Provider Emergency Medicine; Referring Provider Nurse Practitioner Family
DX: L02.416 Cutaneous abscess of left lower limb (principal); Z86.14 Personal history of Methicillin resistant Staphylococcus aureus infection; E11.9 Type 2 diabetes mellitus without complications; F32.9 Major depressive disorder, single episode, unspecified; Z79.4 Long term (current) use of insulin; Z79.899 Other long term (current) drug therapy; F17.200 Nicotine dependence, unspecified, uncomplicated
CPT/HCPCS: 10060; 99283